=== PATIENT | male | born 1960 | race Two or more races ===

== ENCOUNTER → 2019-09-23 | Outpatient (CLI) | payer OTHER | END | disposition home or self-care (01) | LOC: SONOGRAMA 11:04 → MAMO-SONO 13:45 | PROVIDERS: ATTEND Physical Medicine & Rehabilitation | DX: S86.311A Strain of muscle(s) and tendon(s) of peroneal muscle group at lower leg level, right leg, initial encounter (principal); M77.41 Metatarsalgia, right foot ==